=== PATIENT | male | born 1985 | race Caucasian/White ===

== ENCOUNTER → 2021-04-13 15:16 | Outpatient (CLI) | payer OTHER, SELFPAY ==
--- NOTE | ~2021-04-13 | US_ITS ---
US scrotum doppler DATE: 04/13/2021 15:49 INDICATION: Bilateral scrotal pain TECHNIQUE: Real-time imaging and color flow imaging and Doppler analysis of the scrotal contents COMPARISON: None FINDINGS: The right testicle measures 4.3 x 2.5 x 3.6 cm. The left testicle measures 3.4 x 2.2 x 3.2 cm. There is blood flow to both testicles based on color flow imaging and Doppler interrogation. No testicular mass lesion is detected. Seminal vesicles are unremarkable. Right varicocele with diameter up to 3.1 mm. No hydrocele. IMPRESSION: No testicular mass lesion or torsion Right varicocele Reviewed, dictated and finalized at [facility] Reviewed, dictated and finalized at [facility].
== END ==
PROVIDERS: PCP Emergency Medicine; Visit Provider Emergency Medicine
DX: N50.819 Testicular pain, unspecified (principal); I86.1 Scrotal varices
CPT/HCPCS: 76870; 93976

== ENCOUNTER 2024-12-13 16:53 | Emergency (ER) | payer OTHER, SELFPAY ==
[2024-12-13 17:06] VITALS: BP 131/84; PULSE 73; RESP 16; TEMP 37; O2SAT 100
--- NOTE | 2024-12-13 17:15 | ED.URI ---
HPI - URI/Sore Throat General Chief Complaint: Upper Respiratory Infection Stated Complaint: SORE THROAT Time Seen by Provider: 12/13/24 17:15 Source: patient Mode of arrival: ambulatory Limitations: no limitations History of Present Illness HPI Narrative: 39-year-old male presents with complaint of cough, congestion, sore throat, fatigue, body aches, fever for 3 days. Taking [id number] DayQuil NyQuil cold and flu. Denies nausea vomiting diarrhea. All systems reviewed and negative except as noted above. Related Data Home Medications ?Medication ?Instructions ?Recorded ?Confirmed ?Last Taken ?Type No Home Medications 12/13/24 12/13/24 Unknown History Allergies Allergy/AdvReac Type Severity Reaction Status Date / Time No Known Allergies Allergy Verified 12/13/24 17:05 Review of Systems Review of Systems: CONSTITUTIONAL: Reports fever, chills, or sweats. EYES: Denies visual changes, redness, or discharge. ENT: Reports rhinorrhea, congestion, sore throat. Denies otalgia. CARDIOVASCULAR: Denies chest pain, palpitations, or edema. RESPIRATORY: Reports cough. Denies dyspnea. GASTROINTESTINAL: Denies abdominal pain, nausea, vomiting, or diarrhea. GENITOURINARY: Denies dysuria or hematuria. SKIN: Denies rash or itching. MUSCULOSKELETAL: Denies back pain, joint pain, or myalgia. NEUROLOGIC: Denies headache, numbness, or weakness. PSYCHIATRIC: Denies anxiety or depression. All other systems reviewed are negative, except as documented in HPI. PMFSH Comments At time of signature, agree with nursing past medical, surgical, social and family history. There is no relevant family history pertinent to the presenting complaint. Exam Narrative: GENERAL: This is a well-nourished, well-developed patient, in no apparent distress. HEAD: normocephalic, atraumatic. EYES: PERRL. Sclera clear/white. Vision is grossly intact. EARS: External ears normal, auditory canals clear and without drainage, TMs normal without perforation. Hearing grossly intact. NOSE: External nose normal with mild congestion and clear nasal drainage THROAT: Mucous membranes moist, posterior pharynx clear. NECK: Neck supple, non-tender without lymphadenopathy, masses or thyromegaly. CARDIOVASCULAR: Regular rate and rhythm without murmurs, gallops, or rubs. RESPIRATORY: Clear to auscultation. Breath sounds equal bilaterally. No wheezes, rales, or rhonchi. SKIN: warm, Dry, intact with no suspicious lesions or rash, good texture and turgor. NEURO: awake, alert, and oriented to person, place and time. There were no obvious focal neurologic abnormalities. EXTREMITIES: No joint tenderness, effusion, or edema noted. Course Course Level of Care: Express Care Visit Vital Signs Vital signs: Vital Signs Temperature 28.8 C L 12/13/24 17:06 Pulse Rate 73 12/13/24 17:06 Respiratory Rate 16 12/13/24 17:06 Blood Pressure 131/84 12/13/24 17:06 Pulse Oximetry 100 12/13/24 17:06 Oxygen Delivery Room Air 12/13/24 17:06 Temperature 28.8 C L 12/13/24 17:06 Pulse Rate 73 12/13/24 17:06 Respiratory Rate 16 12/13/24 17:06 Blood Pressure 131/84 12/13/24 17:06 Pulse Oximetry 100 12/13/24 17:06 Oxygen Delivery Room Air 12/13/24 17:06 Reviewed MDM - URI/Sore Throat MDM Narrative Medical decision making narrative: Positive influenza. Strep test negative. Recommend patient continue [id number] medications to treat viral symptoms. Patient is well-appearing, nontoxic. Lungs clear to auscultation. Hemodynamically stable. Please be advised this is a medical document. It is intended for [id number] communication. It is written in medical language and may contain unfamiliar abbreviations or verbiage. Medical documents are intended to carry relevant information, facts as evident, and the clinical opinion of the practitioner at the time of the encounter. This report may have been done utilizing a voice recognition system. Attempts have been made to correct errors. However, there may be uncorrected grammatical, spelling, and recognition errors present. The file time of this note does not necessarily represent the time of service. Differential Diagnosis Differential diagnosis: Likely upper respiratory infection, sinusitis, viral infection, influenza and pharyngitis Discharge Plan Discharge Clinical Impression: Influenza A Patient Disposition: Home, Self-Care Condition: Stable Instructions: Influenza (ED) Additional Instructions: You were positive for influenza today. Your strep test was negative. Influenza is a virus and symptoms may last 10-14 days. Taking [id number] medication to treat her symptoms such as DayQuil NyQuil cold and flu. Take as directed on packaging. Take ibuprofen or every 6-8 hours as needed for pain and fever. Drink plenty of water and rest. See your doctor if symptoms are not improving. Patient Language: Stateless Prescriptions: No Action No Home Medications Follow-up/Referrals: Judd,Jamie Cleveland MD [Primary Care Provider] - Stand Alone Forms: Work/School Release IP Time of Disposition: 17:19
[2024-12-13 17:18] LABS: EDCOVIDSCREEN Negative (Negative); EDINFLUASCREEN Positive (Negative); EDINFLUBSCREEN Negative (Negative); EDSTREPNEGPOS1 Negative (Negative)
== END 2024-12-13 17:23 | disposition home or self-care (01) ==
PROVIDERS: Emergency Provider Nurse Practitioner Family; PCP Family Medicine
DX: J10.1 Influenza due to other identified influenza virus with other respiratory manifestations (principal); Z20.822 Contact with and (suspected) exposure to COVID-19
CPT/HCPCS: 87081; 87426; 87804; 87880; 99203; G0463